=== PATIENT | female | born 1975 | race Caucasian/White ===

== ENCOUNTER 2016-08-17 18:04 | Emergency (ER) | payer OTHER ==
[2016-08-17 18:11] VITALS: BMI 32.1
--- NOTE | 2016-08-17 18:15 | PDOC ---
History of Present Illness - General History Source: Patient Exam Limitations: No Limitations - History of Present Illness Initial Comments: 08/17/16 18:43 The patient is a 41 year old female, with a significant past medical history of hypothyroidism and ulcers, who presents to the emergency department with abdominal pain, diarrhea and nausea. She states that she recently returned from [place] 12 days ago, where the diarrhea started, which she describes as nonbloody. She states that she had a 10 day stay there. She notes that the abdominal pain started afterwards and has been going on for 5 days now. She describes her abdominal pain as localized in the epigastric region, ranging from mild to moderate, without radiation or modifying factors. She states that she has been using tums for her pain with minimal relief of her symptoms. She also states that she has been eating and drinking well adequately. The patient denies chest pain, shortness of breath, headache and dizziness. Denies fever, chills, vomit and constipation. Denies dysuria, frequency, urgency and hematuria. Family History: Diabetes, HLD, hypothyroidism, Gallbladder CA (mother dies at 59 ) Allergies: Zantac Past surgical history: Cholecystectomy Social history: Occasional alcohol use. Cigarette use (1 daily). No drug use reported <Kevin Sanchez - Last Filed: 08/17/16 18:42> <Behrane Miller - Last Filed: 08/18/16 08:31> - General Chief Complaint: Pain, Acute Stated Complaint: ABDOMINAL PAIN,DIARRHEA/HEART BURN Time Seen by Provider: 08/17/16 18:15 Past History <Kevin Sanchez - Last Filed: 08/17/16 18:42> - Past Medical History Asthma: No Cancer: No Cardiac Disorders: No Diabetes: No Disorders: Yes (ACID REFLUX) HTN: No Seizures: No Thyroid Disease: Yes (HYPO) - Psycho/Social/Smoking Cessation Hx Anxiety: No Suicidal Ideation: No Smoking History: Current some day smoker Number of Cigarettes Smoked Daily: 1 Information on smoking cessation initiated: No Hx Alcohol Use: Yes (SOCIALLY) Drug/Substance Use Hx: No Substance Use Type: None Hx Substance Use Treatment: No <Berhane Miller - Last Filed: 08/18/16 08:31> - Past Medical History Allergies/Adverse Reactions: Allergies Allergy/AdvReac Type Severity Reaction Status Date / Time ranitidine HCl [From Zantac] Allergy Severe Hives Verified 08/17/16 18:07 Home Medications: Ambulatory Orders Levothyroxine [Synthroid -] 125 mcg PO DAILY 06/22/11 Ciprofloxacin [Cipro -] 500 mg PO Q12H #14 tablet 08/17/16 Esomeprazole Magnesium [Nexium 24Hr] 20 mg PO DAILY #30 tablet. 08/17/16 Review of Systems - Review of Systems Able to Perform ROS?: Yes Comments:: 08/17/16 18:42 GENERAL/CONSTITUTIONAL: No fever or chills. No weakness. HEAD, EYES, EARS, NOSE AND THROAT: No change in vision. No ear pain or discharge. No sore throat. CARDIOVASCULAR: No chest pain or shortness of breath RESPIRATORY: No cough, wheezing, or hemoptysis. GASTROINTESTINAL: +Abdominal pain, nausea and diarrhea. No vomiting, constipation. GENITOURINARY: No dysuria, frequency, or change in urination. MUSCULOSKELETAL: No joint or muscle swelling or pain. No neck or back pain. SKIN: No rash NEUROLOGIC: No headache, vertigo, loss of consciousness, or change in strength/ sensation. ENDOCRINE: No increased thirst. No abnormal weight change HEMATOLOGIC/LYMPHATIC: No anemia, easy bleeding, or history of blood clots. ALLERGIC/IMMUNOLOGIC: No hives or skin allergy. <Kevin Sanchez - Last Filed: 08/17/16 18:42> *Physical Exam - Vital Signs Last Vital Signs Temp Pulse Resp BP Pulse Ox 97.9 F 78 18 144/84 99 08/17/16 18:06 08/17/16 18:06 08/17/16 18:06 08/17/16 18:38 08/17/16 18:06 - Physical Exam Comments: 08/17/16 18:44 GENERAL: Awake, alert, and fully oriented, in no acute distress HEAD: No signs of trauma, normocephalic, atraumatic EYES: PERRLA, EOMI, sclera anicteric, conjunctiva clear ENT: Auricles normal inspection, hearing grossly normal, nares patent, oropharynx clear without exudates. Moist mucosa NECK: Normal ROM, supple, no lymphadenopathy, JVD, or masses LUNGS: No distress, speaks full sentences, clear to auscultation bilaterally HEART: Regular rate and rhythm, normal S1 and S2, no murmurs, rubs or gallops, peripheral pulses normal and equal bilaterally. ABDOMEN: +Mildly distended. Mild tenderness to deep palpation in the epigastrium Soft, normoactive bowel sounds. No guarding, no rebound. No masses. No lower quadrant tenderness whatsoever. EXTREMITIES: Normal inspection, Normal range of motion, no edema. No clubbing or cyanosis. NEUROLOGICAL: Cranial nerves II through XII grossly intact. Normal speech, normal gait, no focal sensorimotor deficits SKIN: Warm, Dry, normal turgor, no rashes or lesions noted. <Kevin Sanchez - Last Filed: 08/17/16 18:42> - Vital Signs Last Vital Signs Temp Pulse Resp BP Pulse Ox 18 0/0 08/17/16 18:06 08/17/16 18:06 <Berhane Miller - Last Filed: 08/18/16 08:31> ED Treatment Course - Medications Given in the ED: ED Medications Discontinued Medications Generic Name Dose Route Start Last Admin Trade Name Freq PRN Reason Stop Dose Admin Ondansetron HCl 4 mg 08/17/16 18:26 08/17/16 18:38 Zofran Injection IVPB 08/17/16 18:27 4 mg ONCE ONE Administration <Kevin Sanchez - Last Filed: 08/17/16 18:42> - LABORATORY CBC & Chemistry Diagram: 08/17/16 18:39 08/17/16 18:39 <Berhane Miller - Last Filed: 08/18/16 08:31> Medical Decision Making - Medical Decision Making 08/18/16 08:29 Patient with gastrointestinal symptoms persisting 12 days after return from [place]. Primarily nausea, diarrhea about 3 times per day. Mild intermittent epigastric pain. No fever or chills. No hematemesis melena or bloody stool. Most likely traveler's diarrhea, possibly Giardia or bacterial. Attempt to obtain stool culture and stool for O&P. Intravenous hydration, Zofran, and Protonix. Refer to GI if no improvement Laboratory evaluation pending. Therapy in progress. Signed out to Dr. Geiger at 7 PM pending labs and further evaluation and treatment. <Berhane Miller - Last Filed: 04/19/17 08:31> *DC/Admit/Observation/Transfer - Attestations Scribe Attestion: 08/17/16 18:42 Documentation prepared by Kevin Sanchez, acting as biomedical specialist for Berhane Hawkins, DO <Kevin Sanchez - Last Filed: 08/17/16 18:42> <Berhane Miller - Last Filed: 08/18/16 08:31> Diagnosis at time of Disposition: Travelers' diarrhea - Discharge Dispostion Disposition: HOME Condition at time of disposition: Stable - Prescriptions Prescriptions: Ciprofloxacin [Cipro -] 500 mg PO Q12H #14 tablet Esomeprazole Magnesium [Nexium 24Hr] 20 mg PO DAILY #30 tablet.dr - Patient Instructions Printed Discharge Instructions: DI for Diarrhea and Traveler's Diarrhea -- Adult Additional Instructions: Ms. Root Thank you for coming in to the ER today Please stay hydrated Please monitor yourself for fevers Please follow up with either your PMD or the ER if you are able to give a stool sample Please see your PMD for follow up within 1 week - Post Discharge Activity Work/School Note: Back to Work
[2016-08-17 18:19] VITALS: BP 144/84; PULSE 78; TEMP 97.9
[2016-08-17] MEDS ORDERED: ONDANSETRON 4 MG/2 ML VIAL IVPB ONE (18:26)
[2016-08-17] MEDS ORDERED: SODIUM CHLORIDE 1,000 ML IV STA (18:26)
[2016-08-17] MEDS ORDERED: ONDANSETRON 4 MG/2 ML VIAL ONE (18:33)
[2016-08-17] MEDS ORDERED: PANTOPRAZOLE SODIUM 40 MG in SODIUM CHLORIDE 100 ML IVPB ONE (18:41)
[2016-08-17] MEDS ORDERED: PANTOPRAZOLE SODIUM 40 MG VIAL ONE (18:49)
--- NOTE | 2016-08-17 19:53 | PDOC ---
*Physical Exam - Vital Signs Last Vital Signs Temp Pulse Resp BP Pulse Ox 97.9 F 78 18 144/84 99 08/17/16 18:06 08/17/16 18:06 08/17/16 18:06 08/17/16 18:38 08/17/16 18:06 ED Treatment Course - LABORATORY CBC & Chemistry Diagram: 08/17/16 18:39 08/17/16 18:39 - ADDITIONAL ORDERS Additional order review: Laboratory Results 08/17/16 08/17/16 18:39 18:39 Sodium 132 L Potassium 3.6 Chloride 100 Carbon Dioxide 26 Anion Gap 6 L BUN 10 Creatinine 0.6 Creat Clearance w eGFR > 60 Random Glucose 99 Calcium 9.0 Total Bilirubin 0.5 AST 17 ALT 18 Alkaline Phosphatase 70 Total Protein 7.5 Albumin 4.2 Urine Color Yellow Urine Appearance Clear Urine pH 5.5 Ur Specific [place] 1.010 Urine Protein Negative Urine Glucose (UA) Negative Urine Ketones Negative Urine Blood Negative Urine Nitrite Negative Urine Bilirubin Negative Urine Urobilinogen 0.2 e.u/dl Ur Leukocyte Esterase Negative Urine HCG, Qual Negative 08/17/16 18:39 RBC 4.96 MCV 86.7 MCHC 34.0 RDW 11.8 MPV 9.4 Neutrophils % 61.8 Lymphocytes % 28.7 Monocytes % 5.3 Eosinophils % 1.0 Basophils % 3.2 H - Medications Given in the ED: ED Medications Discontinued Medications Generic Name Dose Route Start Last Admin Trade Name Freq PRN Reason Stop Dose Admin Sodium Chloride 1,000 mls @ 1,000 mls/hr 08/17/16 18:26 08/17/16 18:38 Normal Saline - IV 08/17/16 19:25 1,000 mls/hr ASDIR STA Administration Pantoprazole Sodium 40 mg/ 100 mls @ 200 mls/hr 08/17/16 18:41 08/17/16 18:53 Sodium Chloride IVPB 08/17/16 19:10 200 mls/hr ONCE ONE Administration Ondansetron HCl 4 mg 08/17/16 18:26 08/17/16 18:38 Zofran Injection IVPB 08/17/16 18:27 4 mg ONCE ONE Administration Medical Decision Making - Medical Decision Making 08/17/16 19:47 I received this patient in sign out Briefly, she returned from [place] with a complaint of diarrhea x 12 days Non bloody, non mucoid No fevers Pt unable to give stool specimen (will bring specimen once she is able to provide it) Laboratory Tests 08/17/16 08/17/16 08/17/16 18:39 18:39 18:39 WBC 7.3 Hgb 14.6 Hct 43.0 Plt Count 215 Sodium 132 L Potassium 3.6 Chloride 100 Carbon Dioxide 26 BUN 10 Creatinine 0.6 Random Glucose 99 Urine Ketones Negative Urine Blood Negative Urine HCG, Qual Negative Will treat with cipro Pt states she continue to have mild epigastric pain States Nexium has previously helped her in the past Clinical Impression: traveler's diarrhea *DC/Admit/Observation/Transfer Diagnosis at time of Disposition: Travelers' diarrhea - Discharge Dispostion Disposition: HOME Condition at time of disposition: Stable Admit: No - Prescriptions Prescriptions: Ciprofloxacin [Cipro -] 500 mg PO Q12H #14 tablet Esomeprazole Magnesium [Nexium 24Hr] 20 mg PO DAILY #30 tablet.dr - Patient Instructions Printed Discharge Instructions: DI for Diarrhea and Traveler's Diarrhea -- Adult Additional Instructions: Ms. Root Thank you for coming in to the ER today Please stay hydrated Please monitor yourself for fevers Please follow up with either your PMD or the ER if you are able to give a stool sample Please see your PMD for follow up within 1 week - Post Discharge Activity Work/School Note: Back to Work
== END 2016-08-17 20:01 | disposition home or self-care (01) ==
LOC: FER 18:04
PROC: 3E033GC Introduction of Other Therapeutic Substance into Peripheral Vein, Percutaneous Approach (ICD-10-PCS; principal; 2016-08-17)
PROC: 3E0337Z Introduction of Electrolytic and Water Balance Substance into Peripheral Vein, Percutaneous Approach (ICD-10-PCS; 2016-08-17)
DX: A08.8 Other specified intestinal infections (principal); F17.210 Nicotine dependence, cigarettes, uncomplicated; E03.9 Hypothyroidism, unspecified
CPT/HCPCS: 36415; 80053; 81003; 84703; 85025; 96361; 96365; 96375; 99282-25

== ENCOUNTER 2020-12-05 16:15 | Emergency (ER) | payer OTHER ==
[2020-12-05 16:30] VITALS: BP 143/91; PULSE 92; TEMP 99.5; BMI 31.9
[2020-12-05 16:46] LABS: BASO % 1.4 % (0-2.0); EOS % 0.5 % (0-4.5); HEMOGLOBIN 15.7 GM/dl (10.7-15.3); LYMPH % 31.8 % (8-40); MCH 31.5 pg (25.7-33.7); MEAN CELL VOLUME 92.4 fl (80-96); MEAN PLT VOLUME 8.4 fl (7.5-11.1); MONO % 7.5 % (3.8-10.2); NEUT % 58.8 % (42.8-82.8); PLATELET COUNT 209 10^3/uL (134-434); RBC 4.98 M/mm3 (3.60-5.2); RDW 12.6 % (11.6-15.6); WHITE BLOOD COUNT 6.5 K/mm3 (4.0-10.8)
[2020-12-05 16:59] LABS: ALBUMIN 4.6 g/dl (3.4-5.0); ALK PHOS 88 U/L (45-117); ANION GAP 18 MMOL/L (8-16); BILIRUBIN,TOTAL 1.1 mg/dl (0.2-1); CALCIUM 9.4 mg/dl (8.5-10); CHLORIDE 99 mmol/L (98-107); CO2 19 mmol/L (21-32); CREATININE 0.7 mg/dl (0.55-1.3); GLUCOSE,RANDOM 99 mg/dl (74-106); SGOT/AST 117 U/L (15-37); SGPT/ALT 121 U/L (13-61); SODIUM 136 mmol/L (136-145); TOT PROT 8.5 g/dl (6.4-8.2)
[2020-12-05] MEDS ORDERED: MAG HYDROX/AL HYDROX/SIMETH -MYLANTA- ORAL SUSPENSION PO ONE (17:04)
[2020-12-05] MEDS ORDERED: MAG HYDROX/AL HYDROX/SIMETH 30 ML UNIT-DOSE CUP ONE (17:44)
[2020-12-05 18:04] LABS: LIPASE 205 U/L (73-393)
== END 2020-12-05 20:15 | disposition home or self-care (01) ==
LOC: FER 16:15
DX: R11.2 Nausea with vomiting, unspecified (principal); Z11.52 Encounter for screening for COVID-19
CPT/HCPCS: 36415; 80053; 83690; 84484; 84703; 85025; 93005; 99284-25; C9803; U0003; U0005

== ENCOUNTER 2024-02-02 17:30 | Emergency (ER) | payer OTHER ==
[2024-02-02 17:37] VITALS: BP 111/71; PULSE 85; RESP 17; TEMP 98.2; BMI 26.5
[2024-02-02] MEDS ORDERED: PANTOPRAZOLE SODIUM 40 MG VIAL ONE (18:05)
[2024-02-02] MEDS ORDERED: ONDANSETRON 4 MG/2 ML VIAL ONE (18:05)
[2024-02-02] MEDS ORDERED: ACETAMINOPHEN INJECTION 100 ML ONE (18:05)
[2024-02-02] MEDS ORDERED: MAG HYDROX/AL HYDROX/SIMETH 30 ML UNIT-DOSE CUP ONE (18:06)
[2024-02-02] MEDS: MAG HYDROX/AL HYDROX/SIMETH 30 ML UNIT-DOSE CUP PO ONE (18:16)
[2024-02-02] MEDS: PANTOPRAZOLE SODIUM 40 MG VIAL IVPUSH ONE (18:16)
[2024-02-02] MEDS: ACETAMINOPHEN 1000 MG/100 ML BAG IVPB ONE (18:16)
[2024-02-02] MEDS: ONDANSETRON 4 MG/2 ML VIAL IVPUSH ONE (18:16)
[2024-02-02 18:24] LABS: HEMATOCRIT 40.7 % (32.4-45.2); HEMOGLOBIN 12.9 G/dL (10.7-15.3); MCH 27.4 pg (25.7-33.7); MCHC 31.7 g/dl (32.0-36.0); MEAN CELL VOLUME 86.7 fl (80-96); MEAN PLT VOLUME 9.2 fl (7.5-11.1); PLATELET COUNT 211.4 10^3/uL (134-434); RDW 15.3 % (11.6-15.6); WHITE BLOOD COUNT 7.2 10^3/uL (4.0-10.8)
[2024-02-02 18:44] LABS: ALBUMIN 4.3 g/dl (3.4-5.0); ALK PHOS 124 U/L (45-117); ANION GAP 9 mmol/L (4-13); CALCIUM 9.4 mg/dl (8.5-10.1); CHLORIDE 101 mmol/L (98-107); CO2 25 mmol/L (21-32); CREATININE 0.6 mg/dl (0.6-1.3); GLUCOSE,RANDOM 97 mg/dl (74-106); POTASSIUM 3.6 mmol/L (3.5-5.1); SGOT/AST 342 U/L (15-37); SGPT/ALT 606 U/L (7-52); SODIUM 135 mmol/L (136-145); TOT PROT 7.1 g/dl (6.4-8.2)
[2024-02-02 18:56] LABS: PLATELET ESTIMATE ADEQUATE
== END 2024-02-02 20:47 | disposition home or self-care (01) ==
LOC: FER 17:30
PROC: 3E033NZ Introduction of Analgesics, Hypnotics, Sedatives into Peripheral Vein, Percutaneous Approach (ICD-10-PCS; principal; 2024-02-02)
PROC: 3E033GC Introduction of Other Therapeutic Substance into Peripheral Vein, Percutaneous Approach (ICD-10-PCS; 2024-02-02)
PROC: 3E033GC Introduction of Other Therapeutic Substance into Peripheral Vein, Percutaneous Approach (ICD-10-PCS; 2024-02-02)
DX: R10.13 Epigastric pain (principal); R11.0 Nausea; R74.01 Elevation of levels of liver transaminase levels
CPT/HCPCS: 36415; 76705-TC; 80053; 83690; 84484; 85027; 93005; 99285-25; J0131